=== PATIENT | male | born 1995 | race Caucasian/White ===

== ENCOUNTER 2017-07-07 08:28 | Emergency (ER) | payer OTHER ==
[~2017-07-07] VITALS: Ht 180.3 cm; Wt 114.4 kg
[2017-07-07 08:30] VITALS: BP 208/97; PULSE 86; RESP 20; TEMP 97.8; O2SAT 100
[2017-07-07 08:41] VITALS: BP 200/105; PULSE 81; RESP 18; O2SAT 100
[2017-07-07] MEDS ORDERED: cloNIDine HCL 0.1 MG TAB PO ONE (08:45)
--- NOTE | 2017-07-07 08:51 | PD ---
HPI Chief Complaint: Chest Pain Time Seen by Provider: 08:45 Travel History International Travel<30 days: No Contact w/Intl Traveler<30days: No Traveled to known affect area: No History of Present Illness HPI This 21-year-old male has been having chest pain for the last couple of days. Yesterday he had the pain off-and-on. It lasted 3-4 minutes. Sugar. Says it was not pleuritic but was not affected by movement. He rates it as a 4/10 yesterday he says that today he woke up in 8/10 chest pain. The pain today has been persistent for about an hour. He says it is not very sharp pain. He does not recall having pain like this before. He does not smoke. He had hypertension when he was not younger but he believes he has not had it recently. He does not have diabetes. PFSH Past Medical History Developmental Delay: No Diminished Hearing: No Hypertension: Yes Immunizations Current: Yes Influenza Vaccination: Yes Past Surgical History Surgical History: No Previous Surgery Social History Alcohol Use: No Tobacco Use: No Substance Use: No Allergies-Medications (Allergen,Severity, Reaction): Coded Allergies: No Known Allergies (Verified Allergy, Unknown, 07/07/17) Reported Meds & Prescriptions Reported Meds & Active Scripts Active No Active Prescriptions or Reported Medications Review of Systems General / Constitutional: No: Fever, Chills Eyes: No: Diploplia, Blurred Vision HENT: No: Headaches, Vertigo Cardiovascular: Positive: Chest Pain or Discomfort, No: Palpitations, Irregular Rhythm Respiratory: No: Cough, Shortness of Breath, Wheezing Gastrointestinal: No: Vomiting, Diarrhea Genitourinary: No: Urgency, Frequency Musculoskeletal: No: Myalgias Skin: No Rash, No Itching Endocrine: No: Heat Intolerance, Cold Intolerance Hematologic/Lymphatic: No: Easy Bruising Physical Exam Narrative GENERAL: Well-developed male. Blood pressures elevated SKIN: Focused skin assessment warm/dry. HEAD: Atraumatic. Normocephalic. EYES: Pupils equal and round. No scleral icterus. No injection or drainage. ENT: No nasal bleeding or discharge. Mucous membranes pink and moist. NECK: Trachea midline. No JVD. CARDIOVASCULAR: Regular rate and rhythm. No murmur appreciated. RESPIRATORY: No accessory muscle use. Clear to auscultation. Breath sounds equal bilaterally. There is left sided costochondral tenderness GASTROINTESTINAL: Abdomen soft, non-tender, nondistended. Hepatic and splenic margins not palpable. MUSCULOSKELETAL: No obvious deformities. No clubbing. No cyanosis. No edema. NEUROLOGICAL: Awake and alert. No obvious cranial nerve deficits. Motor grossly within normal limits. Normal speech. PSYCHIATRIC: Appropriate mood and affect; insight and judgment normal. Data Data Last Documented VS Vital Signs Date Time Temp Pulse Resp B/P (MAP) Pulse Ox O2 Delivery O2 Flow Rate FiO2 07/07/17 09:35 83 18 153/86 (108) 100 Room Air 07/07/17 08:30 97.8 Orders Orders Complete Blood Count With Diff (07/07/17 08:45) Basic Metabolic Panel (Bmp) (07/07/17 08:45) Troponin I (07/07/17 08:45) Chest, Single Ap (07/07/17 08:45) Clonidine (Catapres) (07/07/17 08:45) Ketorolac Inj (Toradol Inj) (07/07/17 09:00) Labs Laboratory Tests Test 07/07/17 08:50 White Blood Count 7.4 TH/MM3 Red Blood Count 5.82 MIL/MM3 Hemoglobin 15.8 GM/DL Hematocrit 48.4 % Mean Corpuscular Volume 83.2 FL Mean Corpuscular Hemoglobin 27.2 PG Mean Corpuscular Hemoglobin Concent 32.7 % Red Cell Distribution Width 12.9 % Platelet Count 227 TH/MM3 Mean Platelet Volume 8.4 FL Neutrophils (%) (Auto) 60.9 % Lymphocytes (%) (Auto) 27.0 % Monocytes (%) (Auto) 8.8 % Eosinophils (%) (Auto) 2.7 % Basophils (%) (Auto) 0.6 % Neutrophils # (Auto) 4.5 TH/MM3 Lymphocytes # (Auto) 2.0 TH/MM3 Monocytes # (Auto) 0.7 TH/MM3 Eosinophils # (Auto) 0.2 TH/MM3 Basophils # (Auto) 0.0 TH/MM3 CBC Comment DIFF FINAL Differential Comment Blood Urea Nitrogen 10 MG/DL Creatinine 1.00 MG/DL Random Glucose 97 MG/DL Calcium Level 8.8 MG/DL Sodium Level 141 MEQ/L Potassium Level 4.3 MEQ/L Chloride Level 105 MEQ/L Carbon Dioxide Level 28.6 MEQ/L Anion Gap 7 MEQ/L Estimat Glomerular Filtration Rate 95 ML/MIN Troponin I LESS THAN 0.02 NG/ML MDM Medical Decision Making Medical Screen Exam Complete: Yes Emergency Medical Condition: Yes Medical Record Reviewed: Yes Differential Diagnosis EKG shows normal sinus rhythm. Troponins normal. Chest x-ray negative. This pain has clearly reproducible with palpation in I believe a secondary to costochondritis. He does have elevation of his blood pressure in I will prescribe lisinopril but I have cautioned him to get a monitor in keep track of his blood pressure. Narrative Course Patient has having ongoing pain but appears to be costochondritis. He stable for discharge. Diagnosis Primary Impression: Costochondritis, acute Additional Impression: Essential hypertension Scripts Lisinopril (Lisinopril) 10 Mg Tab 10 MG PO DAILY, #30 TAB 0 Refills Prov: Valerio Recinos MD 07/07/17 Disposition: 01 DISCHARGE HOME Condition: Stable Valerio Recinos MD Jul 07, 2017 08:51
[2017-07-07 08:53] LABS: AUTOMATED NEUTROPHIL # 4.5 TH/MM3 (1.8-7.7); BASOPHIL % 0.6 % (0.0-2.0); EOSINOPHIL # 0.2 TH/MM3 (0-0.4); EOSINOPHIL % 2.7 % (0.0-4.0); HEMATOCRIT 48.4 % (39.0-51.0); HEMOGLOBIN 15.8 GM/DL (13.0-17.0); MEAN CELL VOLUME 83.2 FL (80.0-100.0); MEAN CORPUSCULAR HEMOGLOBIN 27.2 PG (27.0-34.0); MEAN CORPUSCULAR HGB CONC 32.7 % (32.0-36.0); MEAN PLATELET VOLUME 8.4 FL (7.0-11.0); MONO % 8.8 % (0.0-8.0); MONOCYTE # 0.7 TH/MM3 (0-0.9); NEUT % 60.9 % (16.0-70.0); PLATELET COUNT 227 TH/MM3 (150-450); RED BLOOD COUNT 5.82 MIL/MM3 (4.50-5.90); RED CELL DISTRIBUTION WIDTH 12.9 % (11.6-17.2); WHITE BLOOD COUNT 7.4 TH/MM3 (4.0-11.0)
[2017-07-07 08:57] VITALS: BP 158/92; PULSE 81; RESP 18; O2SAT 100
[2017-07-07] MEDS ORDERED: KETOROLAC TROMETHAMINE 30 MG/ML (IVP) VIAL IV PUSH ONE (09:00)
[2017-07-07 09:01] LABS: CHLORIDE 105 MEQ/L (98-107); SODIUM (NA) 141 MEQ/L (136-145)
[2017-07-07 09:05] LABS: BICARBONATE 28.6 MEQ/L (21.0-32.0); CALCIUM 8.8 MG/DL (8.5-10.1); GLUCOSE,RANDOM 97 MG/DL (74-106)
[2017-07-07 09:06] LABS: BLOOD UREA NITROGEN 10 MG/DL (7-18)
[2017-07-07 09:09] LABS: GLOMERULAR FILTRATION RATE 95 ML/MIN (>89)
--- NOTE | 2017-07-07 09:10 | RADRPT ---
EXAM DATE/TIME: 07/07/2017 08:58 [facility] COMPARISON: No previous studies available for comparison. INDICATIONS : Chest pain. MEDICAL HISTORY : None. SURGICAL HISTORY : None. ENCOUNTER: Initial ACUITY: 2 days PAIN SCORE: 8/10 LOCATION: Bilateral chest FINDINGS: A single view of the chest demonstrates the lungs to be symmetrically aerated without evidence of mas s, infiltrate or effusion. The cardiomediastinal contours are unremarkable. Osseous structures are intact. CONCLUSION: Normal examination. Jeffrey Knight MD on July 07, 2017 at 9:07 Board Certified Radiologist. This report was verified electronically.
[2017-07-07 09:13] LABS: TROPONIN I LESS THAN 0.02 NG/ML (0.02-0.05)
[2017-07-07 09:35] VITALS: BP 153/86; PULSE 83; RESP 18; O2SAT 100
[2017-07-07] MEDS ORDERED: LISI10TA3 PO (09:42)
[2017-07-07 10:02] VITALS: BP 142/82; PULSE 68; RESP 18; O2SAT 98
[2017-07-07] MEDS ORDERED: HYDR-3580 PO (10:05)
[2017-07-07] MEDS ORDERED: ACETAMINOPHEN/HYDROcodone 325 MG/5 MG TAB PO ONE (10:15)
[2017-07-07 10:32] VITALS: BP 132/77; PULSE 66; RESP 18; O2SAT 100
--- NOTE | 2017-07-07 21:53 | EKG ---
Date Performed: 07/07/2017 Time Performed: 08:33:14 PTAGE: 21 years EKG: Sinus rhythm WITH SINUS ARRHYTHMIA NONSPECIFIC T-WAVE ABNORMALITY BORDERLINE ECG NO PREVIOUS TRACING DOCTOR: Jim Gama Interpretating Date/Time 07/07/2017 21:51:43
== END 2017-07-07 10:36 | disposition home or self-care (01) ==
LOC: PHED 08:28
DX: M94.0 Chondrocostal junction syndrome [Tietze] (principal); I10 Essential (primary) hypertension; Z79.899 Other long term (current) drug therapy
CPT/HCPCS: 71045; 80048; 84484; 85025; 93005; 96374; 99285; J1885